=== PATIENT | female | born 1995 | race Caucasian/White ===

== ENCOUNTER 2019-01-06 13:41 | Emergency (ER) | payer SELFPAY ==
[2019-01-06 13:55] VITALS: BP 124/78
--- NOTE | 2019-01-06 15:41 | RADIOLOGY REPORT (SQ) ---
EXAM DESCRIPTION: FOOT RIGHT COMPLETE COMPLETED DATE/TIME: 01/06/2019 3:31 pm REASON FOR STUDY: right lateral foot pain no injury previous surgery COMPARISON: None. NUMBER OF VIEWS: Three views. TECHNIQUE: AP, lateral and oblique radiographic images acquired of the right foot. LIMITATIONS: None. FINDINGS: MINERALIZATION: Normal. BONES: No acute fracture or dislocation. No worrisome bone lesions. Os naviculare is noted. JOINTS: Mild degenerative changes in the talonavicular joint. SOFT TISSUES: No soft tissue swelling. No foreign body. OTHER: No other significant finding. IMPRESSION: Os navicularis. Mild degenerative changes in the talonavicular joint. TECHNICAL DOCUMENTATION: JOB ID: [id number] [employer]- All Rights Reserved Reading location - IP/workstation name: [email or web address]
--- NOTE | 2019-01-06 15:52 | ER Document Report ---
HPI - HPI Time Seen by Provider: 01/06/19 14:52 Pain Level: 5 Notes: Patient is a 23-year-old female presenting to the emergency department chief complaint of right foot pain. Patient reports she had surgery to this foot approximately 2 years ago in [place]. She does not remember the name of her orthopedic surgeon. She denies any new trauma to the area. She reports there is pain behind the incision site. She denies any fevers. She is able to walk on the foot although there is some pain. - REPRODUCTIVE Reproductive: DENIES: : Past Medical History - General Information source: Patient - Social History Smoking Status: Current Every Day Smoker Frequency of alcohol use: None Drug Abuse: None Family History: Reviewed & Not Pertinent - Medical History Medical History: Negative Surgical Hx: Negative Vertical Provider Document - CONSTITUTIONAL Notes: PHYSICAL EXAMINATION: GENERAL: Well-appearing, well-nourished and in no acute distress. HEAD: Atraumatic, normocephalic. EYES: Pupils equal round extraocular movements intact, conjunctiva are normal. ENT: Nares patent NECK: Normal range of motion LUNGS: No respiratory distress Musculoskeletal: Normal range of motion, strong dorsalis pedis pulse to right foot, cap refill less than 3 seconds, normal motor and sensation distal to area of concern. There is an old healed incision noted to the medial aspect of the right foot. NEUROLOGICAL: Normal speech, normal gait. PSYCH: Normal mood, normal affect. SKIN: Warm, Dry, normal turgor, no rashes or lesions noted. - INFECTION CONTROL TRAVEL OUTSIDE OF THE [place] IN LAST 30 DAYS: No Course - Re-evaluation Re-evalutation: Patient appears well, nontoxic and physical examination is unremarkable. Patient initially reported to me that her surgery on her foot was 2 years ago. Now she reports it was approximately 8 years ago. She states she is tried following up with multiple orthopedic surgeons who have all told her that she needs a copy of her records from her previous orthopedic. She reports that she has chronic pain in this area since the surgery. Patient will be discharged home with plan to encourage her to follow-up with orthopedics. I did give her information for orthopedic here in [place]. Patient is unhappy I instructed her to take ibuprofen as she states that it does not work. - Vital Signs Vital signs: Temp Pulse Resp BP Pulse Ox 98.9 F 80 16 124/78 98 01/06/19 13:51 01/06/19 13:51 01/06/19 13:51 01/06/19 13:51 01/06/19 13:51 Discharge - Discharge Clinical Impression: Right foot pain Condition: Stable Disposition: HOME, SELF-CARE Additional Instructions: The x-ray was negative of your foot. There does not appear to be any evidence of infection. I suggest taking ibuprofen 600 mg every 6 hours. Follow-up with orthopedics. If you can remember the name of the orthopedic doctor who performed your surgery that would be best if not follow-up with the orthopedic that I have provided. Forms: Return to Work Referrals: DORY GUILLAUME, [ACTIVE STAFF] - Follow up as needed
== END 2019-01-06 16:07 | disposition home or self-care (01) ==
LOC: ER 13:41
DX: M79.671 Pain in right foot (principal); Z98.890 Other specified postprocedural states; F17.200 Nicotine dependence, unspecified, uncomplicated
CPT/HCPCS: 99283

== ENCOUNTER 2019-01-25 20:22 | Emergency (ER) | payer OTHER, BC ==
--- NOTE | 2019-01-25 23:09 | RADIOLOGY REPORT (SQ) ---
EXAM DESCRIPTION: XR KNEE 4 OR MORE VIEWS COMPLETED DATE/TME: 01/25/2019 22:38 CLINICAL HISTORY: 24 years, Female, bone tenderness COMPARISON: None. NUMBER OF VIEWS: Four TECHNIQUE: Frontal, oblique, and lateral radiographs of the left knee were obtained LIMITATIONS: None. FINDINGS: Visualized osseous structures are normal in appearance. Joint spaces are well-maintained. No acute fracture or dislocation is evident. No significant knee joint effusion. IMPRESSION: No acute osseous anomaly. copyright 2010 [employer]- All Rights Reserved
[2019-01-25] MEDS ORDERED: IBUPROFEN 800 MG TABLET PO ONE (23:29)
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
[2019-01-25 23:56] VITALS: BP 97/87
== END 2019-01-25 23:57 | disposition home or self-care (01) ==
LOC: ER 20:22
DX: M25.562 Pain in left knee (principal); M79.89 Other specified soft tissue disorders; V87.7XXA Person injured in collision between other specified motor vehicles (traffic), initial encounter
CPT/HCPCS: 99283

== ENCOUNTER 2019-06-13 13:57 | Emergency (ER) | payer BC, OTHER ==
[2019-06-13] MEDS ORDERED: PIPERACILLIN/TAZOBACTAM 4.5 GM VIAL IV ONE (14:50)
[2019-06-13] MEDS ORDERED: ACETAMINOPHEN 325 MG TABLET PO ONE (14:50)
--- NOTE | 2019-06-13 14:50 | ER Document Report ---
ED Medical Screen (RME) - General Chief Complaint: Fever Stated Complaint: FEVER/SHAKING/BACK PAIN/VOMITING Time Seen by Provider: 06/13/19 14:45 Primary Care Provider: GARETT TORRES MD [Primary Care Provider] - Follow up as needed Mode of Arrival: Ambulatory Information source: Patient Notes: 24-year-old female presents to ED for cough cold congestion fever chills. Her temp in the triage area is 102 with a pulse of 130 O2 sat 98%. She states she has been having pain to her right flank area. She is alert oriented respirations regular nonlabored speaking in full sentences. Have been having the fevers chills shakes since Wednesday. Last menstrual cycle a week ago. She states she has frequent urination but does not have any burning of other urinary symptoms. He does not have a history of diabetes. I have greeted and performed a rapid initial assessment of this patient. A comprehensive ED assessment and evaluation of the patient, analysis of test results and completion of medical decision making process will be conducted by an additional ED providers. TRAVEL OUTSIDE OF THE [place] IN LAST 30 DAYS: No - Related Data Allergies/Adverse Reactions: No Known Allergies Allergy (Verified 06/13/19 14:45) Past Medical History Renal/ Medical History: Denies: Hx Peritoneal Dialysis Past Surgical History: Reports: Hx Orthopedic Surgery - x3 bilateral feet Physical Exam - Vital signs Vitals: Temp Pulse Resp BP Pulse Ox 102 F H 120 H 22 H 135/59 H 100 06/13/19 14:41 06/13/19 14:41 06/13/19 14:41 06/13/19 14:41 06/13/19 14:41 Course - Vital Signs Vital signs: Temp Pulse Resp BP Pulse Ox 102 F H 120 H 22 H 135/59 H 100 06/13/19 14:41 06/13/19 14:41 06/13/19 14:41 06/13/19 14:41 06/13/19 14:41 Doctor's Discharge - Discharge Referrals: GARETT TORRES MD [Primary Care Provider] - Follow up as needed
[2019-06-13] MEDS ORDERED: NORMAL SALINE 1000 ML 1,000 ML IV ONE (15:38)
--- NOTE | 2019-06-13 15:40 | ER Document Report ---
ED General - General Chief Complaint: Fever Stated Complaint: FEVER/SHAKING/BACK PAIN/VOMITING Time Seen by Provider: 06/13/19 14:45 Primary Care Provider: GARETT TORRES MD [EMERITUS] - Follow up as needed Mode of Arrival: Ambulatory Notes: 24-year-old female presents with flank pain right-sided sharp for 2 days with nausea, fevers and chills. Decreased urine output and dehydration. Symptoms are moderate to severe. No cough but positive headache. No sore throat or shortness of breath. Did not get a flu shot. Seen at triage sepsis protocol ordered including Zosyn which is infusing on my arrival in the room TRAVEL OUTSIDE OF THE [place] IN LAST 30 DAYS: No - Related Data Allergies/Adverse Reactions: No Known Allergies Allergy (Verified 06/13/19 14:45) Past Medical History - General Information source: Patient - Social History Smoking Status: Current Every Day Smoker Drug Abuse: Marijuana Family History: Reviewed & Not Pertinent Patient has suicidal ideation: No Patient has homicidal ideation: No Renal/ Medical History: Denies: Hx Peritoneal Dialysis Past Surgical History: Reports: Hx Orthopedic Surgery - x3 bilateral feet Review of Systems - Review of Systems Notes: REVIEW OF SYSTEMS GEN: Denies fever, chills, weight loss ENT: Denies sore throat, nasal discharge, ear pain EYES: Denies blurry vision, eye pain, discharge CV: Denies chest pain, palpitations, edema RESP: Denies cough, shortness of breath, wheezing GI: Denies abdominal pain, nausea, vomiting, diarrhea MSK: Back flank pain SKIN: Denies rash, skin lesions LYMPH: Denies swollen glands/lymph nodes NEURO: Denies headache, focal weakness or numbness, dizziness PSYCH: Denies depression, suicidal or homicidal ideation PHYSICAL EXAMINATION General: No acute distress, well-nourished Head: Atraumatic, normocephalic ENT: Mouth normal, oropharynx moist, no exudates or tonsillar enlargement Eyes: Conjunctiva normal, pupils equal, lids normal Neck: No JVD, supple, no guarding CVS: Normal rate, regular rhythm, no murmurs Resp: No resp distress, equal and normal breath sounds bilaterally GI: Nondistended, soft, no tenderness to palpation, no rebound or guarding Ext: No deformities, no edema, normal range of motion in upper and lower ext Back: Right CVA tenderness Skin: No rash, warm Lymphatic: No lymphadeopathy noted Neuro: Awake, alert. Face symmetric. GCS 15. Physical Exam - Vital signs Vitals: Temp Pulse Resp BP Pulse Ox 102 F H 120 H 22 H 135/59 H 100 06/13/19 14:41 06/13/19 14:41 06/13/19 14:41 06/13/19 14:41 06/13/19 14:41 Course - Re-evaluation Re-evalutation: 06/13/19 15:49 Fever tachycardia and right flank pain most suggestive of pyelonephritis Differential includes pneumonia impacted stone or flu PE is a distant possibility. The patient has a control implant and smokes She is already getting a sepsis work-up which is been instituted in triage and she is received Zosyn during/prior to my evaluation. We will obtain urine and a flu swab continue her fluids and see what shakes out in terms of infection source. She looks remarkably good given her numbers 06/13/19 17:05 Patient's vitals improved after resuscitation. Her lab evaluation is consistent with sepsis with leukocytosis and pyelonephritis as her source. Given her clinical improvement and no blood in her urine I suspect there is no stone involved. I reassessed her and she agreed to be admitted. I discussed with hospitalist Isac who informed that the patient does not want a be admitted. I then had a long discussion with the patient during which she expressed understanding of the risks of leaving. I told her that if she is going to go home and going to give her antibiotics because she is highly likely to get call back tomorrow for a positive blood culture. Patient is alert and oriented, has capacity decision-making and made the above decision. I have discussed with the patient there likely diagnosis, aftercare plan, follow-up plans and my usual and customary return precautions. They verbalized understanding of this. - Vital Signs Vital signs: Temp Pulse Resp BP Pulse Ox 100.6 F H 120 H 13 111/79 98 06/13/19 15:21 06/13/19 14:41 06/13/19 16:09 06/13/19 16:09 06/13/19 16:09 - Laboratory Result Diagrams: 06/13/19 15:30 06/13/19 15:30 Laboratory results interpreted by me: 06/13/19 06/13/19 06/13/19 15:30 15:30 15:45 WBC 19.6 H Lymph % (Auto) 6.9 L Absolute Neuts (auto) 16.6 H Absolute Monos (auto) 1.6 H Seg Neutrophils % 84.4 H Sodium 134.2 L Glucose 111 H Urine Protein 100 H Urine Ketones TRACE H Urine Blood MODERATE H Urine Nitrite (Reflex) POSITIVE H Urine Urobilinogen 4.0 H Leukocyte Esterase Rfl LARGE H Critical Care Note - Critical Care Note Total time excluding time spent on procedures (mins): 35 Comments: Critical care the above patient is critically ill. Not including procedures, but including direct re-evaluations, speaking with patient and/or consultants, interpreting results, and documenting, I spent the total amount of minute listed listed above on critical care time Discharge - Discharge Clinical Impression: Sepsis Qualifiers: Sepsis type: sepsis due to unspecified organism Sepsis acute organ dysfunction status: unspecified Qualified Code(s): A41.9 - Sepsis, unspecified organism Condition: Fair Disposition: AGAINST MEDICAL ADVICE Admitting Provider: Eyal (Hospitalist) Unit Admitted: Medical Floor Instructions: Pyelonephritis ([facility]) Additional Instructions: You have elected to leave the hospital AGAINST MEDICAL ADVICE. Please return at your earliest convenience to continue antibiotic therapy for your sepsis Prescriptions: Cefuroxime Axetil [Ceftin 250 mg Tablet] 1 tab PO BID #20 tablet Referrals: GARETT TORRES MD [EMERITUS] - Follow up as needed
[2019-06-13 15:51] LABS: ABSOLUTE BASOPHILS # (AUTO) 0.1 10^3/uL (0.0-0.2); ABSOLUTE LYMPHOCYTES (AUTO) 1.4 10^3/uL (0.5-4.7); ABSOLUTE MONOCYTES (AUTO) 1.6 10^3/uL (0.1-1.4); ABSOLUTE NEUT (AUTO) 16.6 10^3/uL (1.7-8.2); BASOPHILS % (AUTO) 0.4 % (0-2); EOSINOPHILS % (AUTO) 0.1 % (0-6); HEMATOCRIT 36.7 % (36.0-47.0); HEMOGLOBIN 12.8 g/dL (12.0-15.5); LYMPHOCYTES % (AUTO) 6.9 % (13-45); MEAN CORPUSCULAR HEMOGLOBIN 32.6 pg (27.0-33.4); MEAN CORPUSCULAR VOLUME 93 fl (80-97); MONOCYTES % (AUTO) 8.2 % (3-13); PLATELET COUNT 235 10^3/uL (150-450); RED BLOOD COUNT 3.94 10^6/uL (3.72-5.28); RED CELL DISTRIBUTION WIDTH 12.1 % (11.5-14.0); SEGMENTED NEUTROPHILS % (AUTO) 84.4 % (42-78); TOTAL CELLS COUNTED % (AUTO) 100 %; WHITE BLOOD COUNT 19.6 10^3/uL (4.0-10.5)
[2019-06-13 15:57] LABS: VENOUS BLOOD BASE EXCESS 3.1 mmol/L; VENOUS BLOOD HCO3 28.2 mmol/L (20-32); VENOUS BLOOD PCO2 44.8 mmHg (35-63); VENOUS BLOOD PH 7.42 (7.30-7.42)
[2019-06-13 15:58] LABS: INTERNATIONAL RATION (INR) 1.15; PROTHROMBIN TIME 14.7 SEC (11.4-15.4)
[2019-06-13 16:00] LABS: AMORPHOUS SEDIMENT,URINE TRACE /HPF; APPEARANCE,URINE CLOUDY; BILIRUBIN,URINE NEGATIVE (NEGATIVE); COLOR,URINE AMBER; GLUCOSE, URINE NEGATIVE (NEGATIVE); KETONES,URINE TRACE mg/dL (NEGATIVE); PROTEIN,URINE 100 mg/dL (NEGATIVE); URINE SPECIFIC GRAVITY 1.013
[2019-06-13 16:10] LABS: ALBUMIN 3.8 g/dL (3.5-5.0); ALKALINE PHOSPHATASE 97 U/L (38-126); ANION GAP 9 (5-19); ASPARTATE AMINO TRANSFERASE 21 U/L (14-36); BILIRUBIN,DIRECT 0.1 mg/dL (0.0-0.4); BILIRUBIN,TOTAL 0.7 mg/dL (0.2-1.3); BLOOD UREA NITROGEN 9 mg/dL (7-20); CALCIUM 8.9 mg/dL (8.4-10.2); CARBON DIOXIDE 26 mmol/L (22-30); CHLORIDE 99 mmol/L (98-107); GLUCOSE 111 mg/dL (75-110); POTASSIUM 3.9 mmol/L (3.6-5.0); TOTAL PROTEIN 7.2 g/dL (6.3-8.2)
[2019-06-13 16:11] LABS: A TYPE INFLUENZA AG NEGATIVE (NEGATIVE); B INFLUENZA AG NEGATIVE (NEGATIVE)
--- NOTE | 2019-06-13 16:29 | RADIOLOGY REPORT (SQ) ---
EXAM DESCRIPTION: CHEST 2 VIEWS COMPLETED DATE/TIME: 06/13/2019 4:12 pm REASON FOR STUDY: fever cough COMPARISON: None. TECHNIQUE: Frontal and lateral radiographic views of the chest acquired. NUMBER OF VIEWS: Two view. LIMITATIONS: None. FINDINGS: LUNGS AND PLEURA: No opacities, masses or pneumothorax. No pleural effusion. MEDIASTINUM AND HILAR STRUCTURES: No masses or contour abnormalities. HEART AND VASCULAR STRUCTURES: Heart normal size. No evidence for failure. BONES: No acute findings. HARDWARE: None in the chest. OTHER: No other significant finding. IMPRESSION: NO SIGNIFICANT RADIOGRAPHIC FINDING IN THE CHEST. TECHNICAL DOCUMENTATION: JOB ID: [id number] [employer]- All Rights Reserved Reading location - IP/workstation name: [email or web address]
[2019-06-13 17:12] VITALS: BP 114/75
== END 2019-06-13 17:19 | disposition left against medical advice (07) ==
LOC: ER 13:57
DX: A41.9 Sepsis, unspecified organism (principal); R50.9 Fever, unspecified; M54.9 Dorsalgia, unspecified; R11.10 Vomiting, unspecified; R11.0 Nausea; R33.9 Retention of urine, unspecified; F17.200 Nicotine dependence, unspecified, uncomplicated; R10.9 Unspecified abdominal pain
CPT/HCPCS: 36415; 87040; 87070; 87086; 87880; 83605; 84703; 85025; 85610; 87088; 80053; 81001; 82803; 87804; 71046; J7030; J2543; 87186

== ENCOUNTER 2019-06-14 12:36 | Observation (INO) | payer BC ==
--- NOTE | 2019-06-14 13:17 | ER Document Report ---
ED Medical Screen (RME) - General Chief Complaint: Nausea/Vomiting Stated Complaint: ABDOMINAL PAIN Time Seen by Provider: 06/14/19 13:16 Mode of Arrival: Ambulatory Information source: Patient Notes: 24-year-old female presented to ED for continued nausea and vomiting and abdominal pain. She was seen yesterday in the asked her to be admitted as she states she could not stay yesterday due to the need for childcare for her children. She states today she has taken care of the childcare problem and she is continuing to have nausea vomiting and abdominal pain. Patient is alert oriented respirations regular nonlabored speaking in full sentences. I have greeted and performed a rapid initial assessment of this patient. A comprehensive ED assessment and evaluation of the patient, analysis of test results and completion of medical decision making process will be conducted by an additional ED providers. TRAVEL OUTSIDE OF THE [place] IN LAST 30 DAYS: No - Related Data Allergies/Adverse Reactions: No Known Allergies Allergy (Verified 06/14/19 13:11) Past Medical History Renal/ Medical History: Denies: Hx Peritoneal Dialysis Past Surgical History: Reports: Hx Orthopedic Surgery - x3 bilateral feet Physical Exam - Vital signs Vitals: Temp Pulse Resp BP Pulse Ox 98.5 F 112 H 20 121/74 98 06/14/19 12:39 06/14/19 12:39 06/14/19 12:39 06/14/19 12:39 06/14/19 12:39 Course - Vital Signs Vital signs: Temp Pulse Resp BP Pulse Ox 98.5 F 112 H 20 121/74 98 06/14/19 12:39 06/14/19 12:39 06/14/19 12:39 06/14/19 12:39 06/14/19 12:39
[2019-06-14 14:29] LABS: HEMATOCRIT 37.1 % (36.0-47.0); MEAN CORPUSCULAR HEMOGLOBIN 32.6 pg (27.0-33.4); MEAN CORPUSCULAR HGB CONC 35.1 g/dL (32.0-36.0); MEAN CORPUSCULAR VOLUME 93 fl (80-97); PLATELET COUNT 254 10^3/uL (150-450); RED CELL DISTRIBUTION WIDTH 12.3 % (11.5-14.0); WHITE BLOOD COUNT 17.6 10^3/uL (4.0-10.5)
[2019-06-14 14:46] LABS: ALBUMIN 3.6 g/dL (3.5-5.0); ALKALINE PHOSPHATASE 106 U/L (38-126); ANION GAP 11 (5-19); ASPARTATE AMINO TRANSFERASE 23 U/L (14-36); BILIRUBIN,DIRECT 0.1 mg/dL (0.0-0.4); BILIRUBIN,TOTAL 0.7 mg/dL (0.2-1.3); BLOOD UREA NITROGEN 9 mg/dL (7-20); CALCIUM 8.8 mg/dL (8.4-10.2); CARBON DIOXIDE 24 mmol/L (22-30); CHLORIDE 102 mmol/L (98-107); GLUCOSE 128 mg/dL (75-110); POTASSIUM 3.6 mmol/L (3.6-5.0); TOTAL PROTEIN 7.1 g/dL (6.3-8.2)
[2019-06-14 14:47] LABS: ABSOLUTE LYMPHOCYTES# (MANUAL) 1.2 10^3/uL (0.5-4.7); ABSOLUTE MONOCYTES # (MANUAL) 0.2 10^3/uL (0.1-1.4); BASOPHILS % (MANUAL) 0 % (0-2); EOSINOPHILS % (MANUAL) 0 % (0-6); LYMPHOCYTES % (MANUAL) 7 % (13-45); MONOCYTES % (MANUAL) 1 % (3-13); SEGMENTED NEUTROPHILS % (MAN) 92 % (42-78); TOTAL CELLS COUNTED 100
[2019-06-14 14:49] LABS: RBC MORPHOLOGY COMMENT NORMO-CYTIC/CHROMIC; TOXIC VACUOLATION PRESENT
[2019-06-14 14:50] LABS: PLATELET COMMENT ADEQUATE
[2019-06-14 14:56] LABS: APPEARANCE,URINE CLOUDY; BILIRUBIN,URINE NEGATIVE (NEGATIVE); GLUCOSE, URINE NEGATIVE (NEGATIVE); KETONES,URINE 80 mg/dL (NEGATIVE); PROTEIN,URINE 100 mg/dL (NEGATIVE); URINE SPECIFIC GRAVITY 1.018
[2019-06-14 14:57] LABS: COLOR,URINE YELLOW
[2019-06-14] MEDS ORDERED: NORMAL SALINE 1000 ML 1,000 ML IV ONE (15:30)
--- NOTE | 2019-06-14 15:34 | ER Document Report ---
ED General - General Chief Complaint: Nausea/Vomiting Stated Complaint: ABDOMINAL PAIN Time Seen by Provider: 06/14/19 13:16 Mode of Arrival: Ambulatory Notes: 24-year-old female presents to the emergency today with complaints of right- sided flank pain nausea vomiting. Patient was evaluated in the emergency department yesterday and advised to be admitted for sepsis possibly pyelonephritis. Patient declined at that time because she had 3 young children with her. Patient was discharged home with a prescription for Ceftin. Patient reports she woke up this morning started vomiting at least 3-4 times. She attempted to take her antibiotics but vomited them up. She reports she is unsure of the fever today she has been taking Tylenol. Last Tylenol was at 0900. Patient reports she vomits anytime she drinks water but was able to hold some applesauce and cranberry juice down. She is reports she still having urinary frequency. Denies diarrhea. TRAVEL OUTSIDE OF THE [place] IN LAST 30 DAYS: No - HPI Onset: Other Onset/Duration: Persistent Quality of pain: Achy Associated symptoms: Fever, Nausea, Vomiting Exacerbated by: Denies Relieved by: Denies Similar symptoms previously: Yes Recently seen / treated by doctor: Yes - Related Data Allergies/Adverse Reactions: No Known Allergies Allergy (Verified 06/14/19 13:11) Past Medical History - General Information source: Patient Last Menstrual Period: Last week - Social History Smoking Status: Current Every Day Smoker Cigarette use (# per day): Yes Chew tobacco use (# tins/day): No Frequency of alcohol use: None Drug Abuse: Marijuana Lives with: Family Family History: Reviewed & Not Pertinent Patient has suicidal ideation: No Patient has homicidal ideation: No - Medical History Medical History: Negative Renal/ Medical History: Denies: Hx Peritoneal Dialysis Past Surgical History: Reports: Hx Orthopedic Surgery - x3 bilateral feet Review of Systems - Review of Systems Notes: Review HPI for review of systems., All other systems negative Physical Exam - Vital signs Vitals: Temp Pulse Resp BP Pulse Ox 98.5 F 112 H 20 121/74 98 06/14/19 12:39 06/14/19 12:39 06/14/19 12:39 06/14/19 12:39 06/14/19 12:39 - General General appearance: Alert In distress: None - HEENT Head: Normocephalic, Atraumatic Eyes: Normal Conjunctiva: Normal Extraocular movements intact: Yes Eyelashes: Normal Pupils: PERRL Mucous membranes: Moist Pharynx: Normal Neck: Normal, Supple. No: Lymphadenopathy - Respiratory Respiratory status: No respiratory distress Chest status: Nontender Breath sounds: Normal Chest palpation: Normal - Cardiovascular Rhythm: Regular, Tachycardia Heart sounds: Normal auscultation Murmur: No - Abdominal Inspection: Normal Distension: No distension Bowel sounds: Normal Tenderness: Nontender Organomegaly: No organomegaly - Back Back: Normal, CVA tenderness - Right-sided flank pain - Extremities General upper extremity: Normal ROM General lower extremity: Normal ROM - Neurological Neuro grossly intact: Yes Cognition: Normal Orientation: AAOx4 [place] Coma Scale Eye Opening: Spontaneous [place] Coma Scale Verbal: Oriented [place] Coma Scale Motor: Obeys Commands Mois[place] Coma Scale Total: 15 Speech: Normal - Psychological Associated symptoms: Normal affect, Normal mood - Skin Skin Temperature: Warm Skin Moisture: Dry Skin Color: Normal Course - Re-evaluation Re-evalutation: This 24-year-old female returns emergency department with complaints of nausea vomiting right-sided flank pain. She was evaluated in the emergency department yesterday and advised to be admitted but she had to go home because she had 4 y oung children. She reports she woke up this morning has vomited at least 3-4 times. She attempted to take her oral antibiotics but vomited them up. She reports she is unsure of the fever. Reports last Tylenol was at 9:00 this morning. White count has decreased from yesterday was 19 today 17.6, UA with moderate leukocytes. I consulted Dr. Birch for admission. He was the provider that was attempting to admit her yesterday. He requested a CT abdomen pelvis with no oral or IV contrast. Laboratory 06/14/19 06/14/19 06/14/19 13:55 14:11 14:11 WBC 17.6 H RBC 4.00 Hgb 13.0 Hct 37.1 MCV 93 MCH 32.6 MCHC 35.1 RDW 12.3 Plt Count 254 Lymph % (Auto) Not Reportable [place] % (Auto) Not Reportable Eos % (Auto) Not Reportable Baso % (Auto) Not Reportable Absolute Neuts (auto) Not Reportable Absolute Lymphs (auto) Not Reportable Absolute Monos (auto) Not Reportable Absolute Eos (auto) Not Reportable Absolute Basos (auto) Not Reportable Total Counted 100 Seg Neutrophils % Not Reportable Seg Neuts % (Manual) 92 H Lymphocytes % (Manual) 7 L Monocytes % (Manual) 1 L Eosinophils % (Manual) 0 Basophils % (Manual) 0 Abs Neuts (Manual) 16.2 H Abs Lymphs (Manual) 1.2 Abs Monocytes (Manual) 0.2 Absolute Eos (Manual) 0.0 Abs Basophils (Manual) 0.0 Toxic Vacuolation PRESENT Platelet Comment ADEQUATE RBC Morph Comment NORMO-CYTIC/CHROMIC Sodium 137.0 Potassium 3.6 Chloride 102 Carbon Dioxide 24 Anion Gap 11 BUN 9 Creatinine 0.85 Est GFR ( Amer) > 60 Est GFR (MDRD) Non-Af > 60 Glucose 128 H Calcium 8.8 Total Bilirubin 0.7 Direct Bilirubin 0.1 Neonat Total Bilirubin Not Reportable Neonat Direct Bilirubin Not Reportable Neonat Indirect Bili Not Reportable AST 23 ALT 13 Alkaline Phosphatase 106 Total Protein 7.1 Albumin 3.6 Serum HCG, Qual Urine Color YELLOW Urine Appearance CLOUDY Urine pH 6.0 Ur Specific [place] 1.018 Urine Protein 100 H Urine Glucose (UA) NEGATIVE Urine Ketones 80 H Urine Blood SMALL H Urine Nitrite (Reflex) NEGATIVE Urine Bilirubin NEGATIVE Urine Urobilinogen 4.0 H Leukocyte Esterase Rfl MODERATE H Urine RBC (Auto) 11 Urine Bacteria (Auto) 2+ Urine WBC (Reflex) 52 Squamous Epi Cells Auto 31 U Non-Squamous Epis Auto 1 Fatty Casts 3 Urine Mucus (Auto) RARE Urine Ascorbic Acid NEGATIVE 06/14/19 14:11 WBC RBC Hgb Hct MCV MCH MCHC RDW Plt Count Lymph % (Auto) [place] % (Auto) Eos % (Auto) Baso % (Auto) Absolute Neuts (auto) Absolute Lymphs (auto) Absolute Monos (auto) Absolute Eos (auto) Absolute Basos (auto) Total Counted Seg Neutrophils % Seg Neuts % (Manual) Lymphocytes % (Manual) Monocytes % (Manual) Eosinophils % (Manual) Basophils % (Manual) Abs Neuts (Manual) Abs Lymphs (Manual) Abs Monocytes (Manual) Absolute Eos (Manual) Abs Basophils (Manual) Toxic Vacuolation Platelet Comment RBC Morph Comment Sodium Potassium Chloride Carbon Dioxide Anion Gap BUN Creatinine Est GFR ( Amer) Est GFR (MDRD) Non-Af Glucose Calcium Total Bilirubin Direct Bilirubin Neonat Total Bilirubin Neonat Direct Bilirubin Neonat Indirect Bili AST ALT Alkaline Phosphatase Total Protein Albumin Serum HCG, Qual NEGATIVE Urine Color Urine Appearance Urine pH Ur Specific [place] Urine Protein Urine Glucose (UA) Urine Ketones Urine Blood Urine Nitrite (Reflex) Urine Bilirubin Urine Urobilinogen Leukocyte Esterase Rfl Urine RBC (Auto) Urine Bacteria (Auto) Urine WBC (Reflex) Squamous Epi Cells Auto U Non-Squamous Epis Auto Fatty Casts Urine Mucus (Auto) Urine Ascorbic Acid 06/14/19 15:55 Dr. Birch in the ED to evaluate patient 06/14/19 18:47 Patient admitted to the hospitalist for n/v/flank pain for IV antibiotics. CT negative. Abdomen/Pelvis CT 06/14/19 15:36 IMPRESSION: NO SIGNIFICANT OR ACUTE PROCESS IN THE ABDOMEN OR PELVIS. - Vital Signs Vital signs: Temp Pulse Resp BP Pulse Ox 102.9 F H 107 H 18 110/74 98 06/14/19 18:39 06/14/19 18:09 06/14/19 18:09 06/14/19 16:58 06/14/19 18:09 - Laboratory Result Diagrams: 06/14/19 14:11 06/14/19 14:11 Laboratory results interpreted by me: 06/14/19 06/14/19 06/14/19 13:55 14:11 14:11 WBC 17.6 H Seg Neuts % (Manual) 92 H Lymphocytes % (Manual) 7 L Monocytes % (Manual) 1 L Abs Neuts (Manual) 16.2 H Glucose 128 H Urine Protein 100 H Urine Ketones 80 H Urine Blood SMALL H Urine Urobilinogen 4.0 H Leukocyte Esterase Rfl MODERATE H - Diagnostic Test Radiology reviewed: Reports reviewed - Consults dr birch Time consulted: 15:40 Reason for consultation: 06/14/19 15:41 flank pain, n/v, flank pain Consulted provider: will come to ER, will see as inpatient Discharge - Discharge Clinical Impression: Flank pain Nausea & vomiting Qualifiers: Vomiting type: unspecified Condition: Stable Disposition: ADMITTED INPATIENT Admitting Provider: Eyal (Hospitalist) Unit Admitted: Medical Floor
[2019-06-14] MEDS ORDERED: CEFTRIAXONE 1 GM/D5W RTU 1 GM/50 ML RTUPB IV ONE (15:37)
[2019-06-14] MEDS ORDERED: OXYCODONE-ACETAMINOPHEN 5-325 MG TABLET PO PRN (15:56)
[2019-06-14] MEDS ORDERED: PROMETHAZINE HCL INJ 25 MG/1 ML VIAL IV PRN (15:56)
[2019-06-14] MEDS ORDERED: ONDANSETRON HCL INJ/PF 4 MG/2 ML SDV IV PRN (15:56)
[2019-06-14] MEDS ORDERED: IPRATROPIUM/ALBUTEROL 0.5-2.5 MG/3 ML AMPUL NEB PRN (15:56)
[2019-06-14] MEDS ORDERED: MORPHINE SULFATE 10 MG/ML INJ IV PRN (16:12)
--- NOTE | 2019-06-14 16:12 | PDOC H&P ---
History of Present Illness Admission Date/PCP: 06/14/19 15:43 History of Present Illness: HOMERO RILEY is a 24 year old female para 1 1, with no significant past medical history presented to ED yesterday complaining of right-sided flank pain nausea vomiting and abdominal pain patient was started on empiric IV antibiotics and hospitalist consulted for admission however patient left AMA stating that her son is alone at home and he does not have a sitter. Today presenting back to ED complaining of persistent nausea, nonbilious nonbloody vomiting and abdominal and right flank pain with right flank pain is nonradiating, 5/5, sharp, worse with movement or coughing, denies any hematuria, dysuria, urgency or frequency. Denies any fever, chills, shortness of breath, chest pain, headache, diarrhea, constipation. Past Surgical History Past Surgical History: Reports: Orthopedic Surgery - x3 bilateral feet Social History Smoking Status: Current Every Day Smoker Electronic Cigarette use?: No Family History Family History: Reviewed & Not Pertinent Parental Family History Reviewed: Yes Children Family History Reviewed: Yes Sibling(s) Family History Reviewed.: Yes Medication/Allergy Allergies/Adverse Reactions: No Known Allergies Allergy (Verified 06/14/19 13:11) Physical Exam Vital Signs: Temp Pulse Resp BP Pulse Ox 98.5 F 112 H 20 121/74 98 06/14/19 12:39 06/14/19 12:39 06/14/19 12:39 06/14/19 12:39 06/14/19 12:39 Intake & Output 06/13/19 06/14/19 06/15/19 06:59 06:59 06:59 Weight 79.5 kg Results Laboratory Results: 06/14/19 14:11 06/14/19 14:11 06/14/19 06/14/19 06/14/19 13:55 14:11 14:11 WBC 17.6 H RBC 4.00 Hgb 13.0 Hct 37.1 MCV 93 MCH 32.6 MCHC 35.1 RDW 12.3 Plt Count 254 Seg Neutrophils % Not Reportable Sodium 137.0 Potassium 3.6 Chloride 102 Carbon Dioxide 24 Anion Gap 11 BUN 9 Creatinine 0.85 Est GFR ( Amer) > 60 Glucose 128 H Calcium 8.8 Total Bilirubin 0.7 AST 23 Alkaline Phosphatase 106 Total Protein 7.1 Albumin 3.6 Serum HCG, Qual Urine Color YELLOW Urine Appearance CLOUDY Urine pH 6.0 Ur Specific [place] 1.018 Urine Protein 100 H Urine Glucose (UA) NEGATIVE Urine Ketones 80 H Urine Blood SMALL H Urine RBC (Auto) 11 06/14/19 14:11 WBC RBC Hgb Hct MCV MCH MCHC RDW Plt Count Seg Neutrophils % Sodium Potassium Chloride Carbon Dioxide Anion Gap BUN Creatinine Est GFR ( Amer) Glucose Calcium Total Bilirubin AST Alkaline Phosphatase Total Protein Albumin Serum HCG, Qual NEGATIVE Urine Color Urine Appearance Urine pH Ur Specific [place] Urine Protein Urine Glucose (UA) Urine Ketones Urine Blood Urine RBC (Auto) Assessment and Plan - Diagnosis (1) UTI (urinary tract infection) Is this a current diagnosis for this admission?: Yes Plan: Likely due to gram-negative rods including E. coli. Denies any history of nephrolithiasis, recurrent UTIs. Admit to medical floor, empiric IV antibiotics, CT abdomen pelvis, blood cultures and culture. (2) Tobacco abuse Is this a current diagnosis for this admission?: Yes Plan: Extensively counseled on quitting. NicoDerm patch will be provided. (3) Nausea & vomiting Qualifiers: Vomiting type: unspecified Is this a current diagnosis for this admission?: Yes Plan: Monitor volume status electrolyte replace as needed, PRN antiemetics.
--- NOTE | 2019-06-14 16:27 | RADIOLOGY REPORT (SQ) ---
EXAM DESCRIPTION: CT ABD/PELVIS NO ORAL OR IV COMPLETED DATE/TIME: 06/14/2019 3:44 pm REASON FOR STUDY: flank pain COMPARISON: None. TECHNIQUE: CT scan of the abdomen and pelvis performed without intravenous or oral contrast. Images reviewed with lung, soft tissue, and bone windows. Reconstructed coronal and sagittal MPR images revi ewed. All images stored on PACS. All CT scanners at this facility use dose modulation, iterative reconstruction, and/or weight based d osing when appropriate to reduce radiation dose to as low as reasonably achievable (ALARA). [facility]: Dose Right [facility]: CareDose [facility]: Dose Right [facility]: Teradose 4D [facility]: Smart [employer] RADIATION DOSE: CT Rad equipment meets quality standard of care and radiation dose reduction techniq ues were employed. CTDIvol: 9.2 mGy. DLP: 501 mGy-cm.mGy. LIMITATIONS: None. FINDINGS: LOWER CHEST: No significant findings. No nodules or infiltrates. NON-CONTRASTED LIVER, SPLEEN, ADRENALS: Evaluation limited by lack of IV contrast. No identified sign ificant masses. PANCREAS: No masses. No peripancreatic inflammatory changes. GALLBLADDER: No identified stones by CT criteria. No inflammatory changes to suggest cholecystitis. RIGHT KIDNEY AND URETER: No suspicious masses. Assessment limited by lack of IV contrast. No signif icant calcifications. No hydronephrosis or hydroureter. LEFT KIDNEY AND URETER: No suspicious masses. Assessment limited by lack of IV contrast. No signifi cant calcifications. No hydronephrosis or hydroureter. AORTA AND RETROPERITONEUM: No aneurysm. No retroperitoneal masses or adenopathy. BOWEL AND PERITONEAL CAVITY: No obvious masses or inflammatory changes. No free fluid. APPENDIX: Not identified. PELVIS, BLADDER, AND ABDOMINAL WALL:No abnormal masses. No free fluid. Bladder normal. BONES: No significant findings. OTHER: No other significant finding. IMPRESSION: NO SIGNIFICANT OR ACUTE PROCESS IN THE ABDOMEN OR PELVIS. COMMENT: Quality ID # [id number]: Final reports with documentation of one or more dose reduction techniques (e.g., Automated exposure control, adjustment of the mA and/or kV according to patient size, use of iterative reconstruction technique) TECHNICAL DOCUMENTATION: JOB ID: [id number] [employer]- All Rights Reserved Reading location - IP/workstation name: [email or web address]
[2019-06-14] MEDS: ACETAMINOPHEN 325 MG TABLET PO PRN ×2 (17:00→23:46)
[2019-06-14] MEDS ORDERED: ACETAMINOPHEN 325 MG TABLET PO ONE (17:13)
[2019-06-14] MEDS ORDERED: METOPROLOL TARTRATE PF/INJ 5 MG/5 ML SDV IV PRN (18:29)
[2019-06-14] MEDS: FAMOTIDINE 20 MG TABLET PO SCH (21:58)
[2019-06-15] MEDS ORDERED: NICOTINE 7 MG/24 HR PATCH.TD24 TD ONE (01:00)
[2019-06-15 05:28] LABS: ABSOLUTE EOSINOPHILS # (AUTO) 0.1 10^3/uL (0.0-0.6); ABSOLUTE LYMPHOCYTES (AUTO) 1.9 10^3/uL (0.5-4.7); ABSOLUTE MONOCYTES (AUTO) 1.3 10^3/uL (0.1-1.4); ABSOLUTE NEUT (AUTO) 10.6 10^3/uL (1.7-8.2); BASOPHILS % (AUTO) 0.2 % (0-2); EOSINOPHILS % (AUTO) 0.6 % (0-6); HEMOGLOBIN 13.5 g/dL (12.0-15.5); LYMPHOCYTES % (AUTO) 13.4 % (13-45); MEAN CORPUSCULAR HEMOGLOBIN 32.3 pg (27.0-33.4); MEAN CORPUSCULAR HGB CONC 34.6 g/dL (32.0-36.0); MEAN CORPUSCULAR VOLUME 93 fl (80-97); MONOCYTES % (AUTO) 9.2 % (3-13); PLATELET COUNT 264 10^3/uL (150-450); RED BLOOD COUNT 4.18 10^6/uL (3.72-5.28); RED CELL DISTRIBUTION WIDTH 12.2 % (11.5-14.0); SEGMENTED NEUTROPHILS % (AUTO) 76.6 % (42-78); TOTAL CELLS COUNTED % (AUTO) 100 %; WHITE BLOOD COUNT 13.9 10^3/uL (4.0-10.5)
[2019-06-15 05:36] LABS: ALBUMIN 3.9 g/dL (3.5-5.0); ALKALINE PHOSPHATASE 118 U/L (38-126); ANION GAP 15 (5-19); ASPARTATE AMINO TRANSFERASE 23 U/L (14-36); BILIRUBIN,DIRECT 0.4 mg/dL (0.0-0.4); BILIRUBIN,TOTAL 0.5 mg/dL (0.2-1.3); BLOOD UREA NITROGEN 9 mg/dL (7-20); CALCIUM 9.2 mg/dL (8.4-10.2); CARBON DIOXIDE 22 mmol/L (22-30); CHLORIDE 104 mmol/L (98-107); GLUCOSE 83 mg/dL (75-110); POTASSIUM 3.9 mmol/L (3.6-5.0); TOTAL PROTEIN 7.8 g/dL (6.3-8.2)
[2019-06-15] MEDS: FAMOTIDINE 20 MG TABLET PO SCH (09:22)
[2019-06-15] MEDS ORDERED: ENOXAPARIN SODIUM INJ 40 MG/0.4 ML DISP.SYRIN SUBCUT SCH (10:00)
[2019-06-15] MEDS ORDERED: ONDANSETRON HCL INJ/PF 4 MG/2 ML SDV IV PRN (11:00)
[2019-06-15] MEDS ORDERED: PROMETHAZINE HCL INJ 25 MG/1 ML VIAL IV PRN (11:00)
[2019-06-15] MEDS ORDERED: CEFTRIAXONE 1 GM/D5W RTU 1 GM/50 ML RTUPB IV SCH (12:00)
[2019-06-15 13:45] VITALS: BP 101/58
[2019-06-15] MEDS ORDERED: NICOTINE 7 MG/24 HR PATCH.TD24 TD SCH (22:00)
--- NOTE | 2019-06-17 18:12 | PDOC DISCHARGE SUMMARY ---
Impression - Admit/DC Date/PCP Admission Date/Primary Care Provider: 06/14/19 15:43 Discharge Date: 06/15/19 - Discharge Diagnosis (1) UTI (urinary tract infection) Is this a current diagnosis for this admission?: Yes (2) Tobacco abuse Is this a current diagnosis for this admission?: Yes (3) Nausea & vomiting Is this a current diagnosis for this admission?: Yes - Additional Information Discharge Diet: As Tolerated Discharge Activity: Activity As Tolerated Referrals: [facility] [place] [Other] - 06/26/19 4:00 pm Prescriptions: Levofloxacin [Levaquin 500 mg Tablet] 500 mg PO DAILY 5 Days #5 tablet Promethazine HCl [Phenergan 25 mg Tablet] 12.5 mg PO Q6 5 Days #20 tablet Home Medications: Levofloxacin [Levaquin 500 mg Tablet] 500 mg PO DAILY 5 Days #5 tablet 06/15/19 Promethazine HCl [Phenergan 25 mg Tablet] 12.5 mg PO Q6 5 Days #20 tablet 06/15/19 History of Present Illiness History of Present Illness: HOMERO RILEY is a 24 year old female para 1 1, with no significant past medical history presented to ED yesterday complaining of right-sided flank pain nausea vomiting and abdominal pain patient was started on empiric IV antibiotics and hospitalist consulted for admission however patient left AMA stating that her son is alone at home and he does not have a sitter. Today presenting back to ED complaining of persistent nausea, nonbilious nonbloody vomiting and abdominal and right flank pain with right flank pain is nonradiating, 5/5, sharp, worse with movement or coughing, denies any hematuria, dysuria, urgency or frequency. Denies any fever, chills, shortness of breath, chest pain, headache, diarrhea, constipation. Hospital Course Hospital Course: (1) UTI (urinary tract infection) Due to E. coli pansensitive. Denied any history of nephrolithiasis, recurrent UTIs. CT abdomen negative for any pyelonephritis. Admitted to floor started on empiric IV antibiotics. Discharged on levofloxacin p.o. (2) Tobacco abuse Extensively counseled on quitting. NicoDerm patch provided. (3) Nausea & vomiting Resolved. Started on antiemetics. Physical Exam Vital Signs: Temp Pulse Resp BP Pulse Ox 98.5 F 99 14 101/58 L 99 06/15/19 13:44 06/15/19 13:44 06/15/19 13:44 06/15/19 13:44 06/15/19 13:44 Intake & Output 06/16/19 06/17/19 06/18/19 06:59 06:59 06:59 Intake Total 50 Balance 50 General appearance: PRESENT: obese Head exam: PRESENT: atraumatic, normocephalic Respiratory exam: PRESENT: clear to auscultation rosa. ABSENT: rales, rhonchi, wheezes Cardiovascular exam: PRESENT: RRR. ABSENT: diastolic murmur, rubs, systolic murmur GI/Abdominal exam: PRESENT: normal bowel sounds, soft. ABSENT: distended, guarding, mass, organolmegaly, rebound, tenderness Extremities exam: PRESENT: full ROM. ABSENT: calf tenderness, clubbing, pedal edema Neurological exam: PRESENT: alert, awake, oriented to person, oriented to place, oriented to time, oriented to situation, CN II-XII grossly intact. ABSENT: motor sensory deficit Results Laboratory Results: WBC 13.9 10^3/uL (4.0-10.5) H 06/15/19 04:40 RBC 4.18 10^6/uL (3.72-5.28) 06/15/19 04:40 Hgb 13.5 g/dL (12.0-15.5) 06/15/19 04:40 Hct 39.0 % (36.0-47.0) 06/15/19 04:40 MCV 93 fl (80-97) 06/15/19 04:40 MCH 32.3 pg (27.0-33.4) 06/15/19 04:40 MCHC 34.6 g/dL (32.0-36.0) 06/15/19 04:40 RDW 12.2 % (11.5-14.0) 06/15/19 04:40 Plt Count 264 10^3/uL (150-450) 06/15/19 04:40 Lymph % (Auto) 13.4 % (13-45) 06/15/19 04:40 [place] % (Auto) 9.2 % (3-13) 06/15/19 04:40 Eos % (Auto) 0.6 % (0-6) 06/15/19 04:40 Baso % (Auto) 0.2 % (0-2) 06/15/19 04:40 Absolute Neuts (auto) 10.6 10^3/uL (1.7-8.2) H 06/15/19 04:40 Absolute Lymphs (auto) 1.9 10^3/uL (0.5-4.7) 06/15/19 04:40 Absolute Monos (auto) 1.3 10^3/uL (0.1-1.4) 06/15/19 04:40 Absolute Eos (auto) 0.1 10^3/uL (0.0-0.6) 06/15/19 04:40 Absolute Basos (auto) 0.0 10^3/uL (0.0-0.2) 06/15/19 04:40 Total Counted 100 06/14/19 14:11 Seg Neutrophils % 76.6 % (42-78) 06/15/19 04:40 Seg Neuts % (Manual) 92 % (42-78) H 06/14/19 14:11 Lymphocytes % (Manual) 7 % (13-45) L 06/14/19 14:11 Monocytes % (Manual) 1 % (3-13) L 06/14/19 14:11 Eosinophils % (Manual) 0 % (0-6) 06/14/19 14:11 Basophils % (Manual) 0 % (0-2) 06/14/19 14:11 Abs Neuts (Manual) 16.2 10^3/uL (1.7-8.2) H 06/14/19 14:11 Abs Lymphs (Manual) 1.2 10^3/uL (0.5-4.7) 06/14/19 14:11 Abs Monocytes (Manual) 0.2 10^3/uL (0.1-1.4) 06/14/19 14:11 Absolute Eos (Manual) 0.0 10^3/uL (0.0-0.6) 06/14/19 14:11 Abs Basophils (Manual) 0.0 10^3/uL (0.0-0.2) 06/14/19 14:11 Toxic Vacuolation PRESENT 06/14/19 14:11 Platelet Comment ADEQUATE 06/14/19 14:11 RBC Morph Comment NORMO-CYTIC/CHROMIC 06/14/19 14:11 Sodium 141.1 mmol/L (137-145) 06/15/19 04:40 Potassium 3.9 mmol/L (3.6-5.0) 06/15/19 04:40 Chloride 104 mmol/L (98-107) 06/15/19 04:40 Carbon Dioxide 22 mmol/L (22-30) 06/15/19 04:40 Anion Gap 15 (5-19) 06/15/19 04:40 BUN 9 mg/dL (7-20) 06/15/19 04:40 Creatinine 0.81 mg/dL (0.52-1.25) 06/15/19 04:40 Est GFR ( Amer) > 60 (>60) 06/15/19 04:40 Est GFR (MDRD) Non-Af > 60 (>60) 06/15/19 04:40 Glucose 83 mg/dL (75-110) 06/15/19 04:40 Calcium 9.2 mg/dL (8.4-10.2) 06/15/19 04:40 Magnesium 2.3 mg/dL (1.6-2.3) 06/15/19 04:40 Total Bilirubin 0.5 mg/dL (0.2-1.3) 06/15/19 04:40 Direct Bilirubin 0.4 mg/dL (0.0-0.4) 06/15/19 04:40 Neonat Total Bilirubin Not Reportable 06/15/19 04:40 Neonat Direct Bilirubin Not Reportable 06/15/19 04:40 Neonat Indirect Bili Not Reportable 06/15/19 04:40 AST 23 U/L (14-36) 06/15/19 04:40 ALT 13 U/L (<35) 06/15/19 04:40 Alkaline Phosphatase 118 U/L (38-126) 06/15/19 04:40 Total Protein 7.8 g/dL (6.3-8.2) 06/15/19 04:40 Albumin 3.9 g/dL (3.5-5.0) 06/15/19 04:40 Serum HCG, Qual NEGATIVE (NEGATIVE) 06/14/19 14:11 Urine Color YELLOW 06/14/19 13:55 Urine Appearance CLOUDY 06/14/19 13:55 Urine pH 6.0 (5.0-9.0) 06/14/19 13:55 Ur Specific [place] 1.018 06/14/19 13:55 Urine Protein 100 mg/dL (NEGATIVE) H 06/14/19 13:55 Urine Glucose (UA) NEGATIVE mg/dL (NEGATIVE) 06/14/19 13:55 Urine Ketones 80 mg/dL (NEGATIVE) H 06/14/19 13:55 Urine Blood SMALL (NEGATIVE) H 06/14/19 13:55 Urine Nitrite (Reflex) NEGATIVE (NEGATIVE) 06/14/19 13:55 Urine Bilirubin NEGATIVE (NEGATIVE) 06/14/19 13:55 Urine Urobilinogen 4.0 mg/dL (<2.0) H 06/14/19 13:55 Leukocyte Esterase Rfl MODERATE (NEGATIVE) H 06/14/19 13:55 Urine RBC (Auto) 11 /HPF 06/14/19 13:55 Urine Bacteria (Auto) 2+ /HPF 06/14/19 13:55 Urine WBC (Reflex) 52 /HPF 06/14/19 13:55 Squamous Epi Cells Auto 31 /HPF 06/14/19 13:55 U Non-Squamous Epis Auto 1 /HPF 06/14/19 13:55 Fatty Casts 3 /LPF 06/14/19 13:55 Urine Mucus (Auto) RARE /LPF 06/14/19 13:55 Urine Ascorbic Acid NEGATIVE (NEGATIVE) 06/14/19 13:55 Impressions: Abdomen/Pelvis CT 06/14/19 15:36 IMPRESSION: NO SIGNIFICANT OR ACUTE PROCESS IN THE ABDOMEN OR PELVIS. Stroke Is this a Stroke Patient?: No Acute Heart Failure - Is this a Heart Failure Patient?: No
== END 2019-06-15 14:30 | disposition home or self-care (01) ==
LOC: ER 12:36 → EH 15:43 → INTOOBSV 15:43 → 5 18:36
PROVIDERS: ADMIT Internal Medicine; ATTEND Internal Medicine
DX: N39.0 Urinary tract infection, site not specified (principal); B96.20 Unspecified Escherichia coli [E. coli] as the cause of diseases classified elsewhere; R11.2 Nausea with vomiting, unspecified; E66.9 Obesity, unspecified; R00.0 Tachycardia, unspecified; F17.210 Nicotine dependence, cigarettes, uncomplicated; F12.10 Cannabis abuse, uncomplicated
CPT/HCPCS: 99285; 36415 ×2; 87040; 83735; 84703; 85025 ×2; 80053 ×2; 81001; 74176; J1650; J7030; J3490; J0696 ×2; G0378